=== PATIENT | female | born 2000 | race African-American/Black ===

== ENCOUNTER 2020-03-18 14:14 | Emergency (ER) | payer OTHER, SELFPAY ==
[2020-03-18 17:00] VITALS: BP 120/94; PULSE 73; RESP 16; TEMP 37.3; O2SAT 100; BMI 24.2
--- NOTE | 2020-03-18 17:22 | ED.LOWEXIN ---
HPI - Extremity Injury (Lower) General Chief Complaint: Extremity Injury, Lower Stated Complaint: toe pain Time Seen by Provider: 03/18/20 17:22 Source: patient Mode of arrival: ambulatory Limitations: no limitations History of Present Illness HPI Narrative: Left great toe pain/swelling for the past 3 days. No injury. States he has history of ingrown nail this site. Also reports she had to call out of work yesterday due to slight headache that has resolved however her work is requesting that she had a negative COVID test before she returns to work and she is requesting a test for this. She denies any symptoms at this time. Related Data Previous Rx's Medication Instructions Recorded cephalexin [Keflex] 500 mg PO TID #30 cap 03/18/20 Allergies Allergy/AdvReac Type Severity Reaction Status Date / Time No Known Allergies Allergy Verified 03/18/20 17:07 Review of Systems Review of Systems: Constitutional: No Weight loss, No Fever, No Chills, No Night Sweats, No Fatigue, No Malaise ENT/Mouth: No Hearing loss, No Ear Pain, No Nasal Congestion, No Sinus Pain, No Hoarseness, No sore throat, No Rhinorrhea, No Swallowing Difficulty Eyes: No Eye Pain, No Swelling, No Redness, No Foreign Body, No Discharge, No Vision Changes Cardiovascular: No Chest Pain, No SOB, No Dyspnea on Exertion, No Orthopnea, No Edema, No Palpitations Respiratory: No Cough, No Sputum, No Wheezing, No Smoke Exposure, No Dyspnea Gastrointestinal: No Nausea, No Vomiting, No Diarrhea, No Constipation, No abdominal Pain Genitourinary: no irregular bleeding, No Dysuria, No Urinary Frequency Musculoskeletal: No joint pain, No Myalgias, No Joint Swelling Skin: No Skin Lesions, No rash Neuro: No Weakness, No Numbness, No Paresthesias, No Loss of Consciousness, No Dizziness, No Headache Psych: No Anxiety/Panic, No Depression, No SI/HI/AH/VH, No Social Issues, Heme/Lymph: No Bruising, No Bleeding,No Lymphadenopathy Endocrine: No Polyuria, No Polydipsia, No Temperature Intolerance Yes all other systems are reviewed and are negative [facility] Past Medical History Medical History (Updated 03/18/20 @ 17:22 by Sandeep Andre NP) No known health problems Social History Social History Alcohol intake: never Smoked in Last 30 Days: No Substance Use Type: Marijuana Physical Exam Vital Signs: Vital Signs: Last Vital Signs Temp 99.2 F 03/18/20 17:00 Pulse 73 03/18/20 17:00 Resp 16 03/18/20 17:00 BP 120/94 H 03/18/20 17:00 Pulse Ox 100 03/18/20 17:00 Body Mass Index 24.2 Reviewed Const: General: cooperative and healthy appearing; No acute distress or intoxicated appearing Nutritional Appearance: average body habitus Orientation/consciousness: patient oriented x3 HENMT: Head: Yes normal to inspection Ears: hearing grossly normal bilaterally Eyes: General: appearance normal, both eyes and all related structures Visual Figueroa: normal visual figueroa by confrontation Neck: Thyroid: Thyroid normal Chest: Chest palpation & inspection: normal inspection of the chest Resp: Effort & Inspection: normal respiratory effort Cardio: Jugular venous distension: no JVD Skin: General skin exam: no rashes or lesions noted Neuro: General: patient oriented x3 Extrem: General: Yes normal to inspection Ankle/foot/toe images: 1. Very slight area of erythema with very slight induration. When palpated with and very small amount of purulent discharge from the site. The nail is overlapping and does not appear to be in bedded within the skin. There is no streaking away from the site. Full range of motion in the foot. Discharge Plan Discharge Clinical Impression: Paronychia Patient Disposition: Home, Self-Care Instructions: Paronychia (ED) Additional Instructions: Warm compresses Epson Salt soaks Home cares reviewed Antibiotics as prescribed Tylenol or ibuprofen per label instructions [id number] Per request we have done her COVID-19 test for work clearance as you have requested although your asymptomatic This test may take up to 3-5 days return In the meantime remain out of work until this is negative Thank you Prescriptions: New cephalexin [Keflex] 500 mg capsule 500 mg PO TID Qty: 30 RF: 0 Referrals: ED PhysicianJosephine [Emergency Provider] - 1 week (Phone visit with primary care as needed) Jeet Correia [Physician] - 1 week Stand Alone Forms: Work/School Release
== END 2020-03-18 17:40 | disposition home or self-care (01) ==
LOC: HO.ED 17:28
PROVIDERS: Nurse Practitioner Primary Care; Emergency Provider Emergency Medicine Emergency Medical Services
DX: L03.032 Cellulitis of left toe (principal); Z20.828 Contact with and (suspected) exposure to other viral communicable diseases
CPT/HCPCS: 99283; U0003